=== PATIENT | female | born 1960 | race Caucasian/White ===

== ENCOUNTER → 2020-06-14 | Outpatient (CLI) | payer OTHER ==
[~2020-06-14] MED LIST: ALL DAY ALLERGY10 MG PO; ASPIR 8181 MG PO; CELEXA40 MG PO; CENTRUM SILVER1 EAC1 PO; COZAAR50 MG PO; DITROPAN XL10 MG PO; ERYTHROMYCIN OP1 GM OP; ESTRADIOL1 EAC1 TD; LEVAQUIN500 MG PO; LOPRESSOR 25 MG25 MG PO; MEDROL DOSEPAK 24 MG PO; OMEPRAZOLE20 MG PO; PRAVASTATIN SOD40 MG PO; PREDNISONE20 MG PO; PROVENTIL HFA6.7 GM INH; ROBITUSSIN AC480 ML PO; SINGULAIR10 MG PO; SYNTHROID125 MCG PO; VALACYCLOVIR1000 MG PO; VICTOZA 3-0.6 MG/0.1 SQ; VITAMIN D35000 UNI1 PO
== END ==
LOC: SLEEP 11:22
DX: G47.30 Sleep apnea, unspecified (principal); R09.81 Nasal congestion; E66.9 Obesity, unspecified
CPT/HCPCS: 95810

== ENCOUNTER 2020-07-13 13:45 | Emergency (ER) | payer OTHER ==
[~2020-07-13 13:45] MED LIST changes: -ERYTHROMYCIN OP1 GM OP; -PREDNISONE20 MG PO; -VALACYCLOVIR1000 MG PO
[2020-07-13 14:37] LABS: HEMOGLOBIN 12.2 gm/dl (12.3-15.3); RED BLOOD COUNT 4.09 M/UL (4.00-5.10); WHITE BLOOD COUNT 9.5 K/UL (4.5-11.0)
[2020-07-13 15:03] LABS: BUN/CREATININE RATIO 16 (0-10)
[2020-07-13] MEDS ORDERED: PREDNISONE20 MG PO (15:35)
[2020-07-13] MEDS ORDERED: VALACYCLOVIR1000 MG PO (15:35)
[2020-07-13] MEDS ORDERED: ERYTHROMYCIN OP1 GM OP (15:35)
== END 2020-07-13 15:44 | disposition home or self-care (01) ==
LOC: ER1 13:45
PROVIDERS: Family Medicine
DX: G51.0 Bell's palsy (principal); H92.02 Otalgia, left ear; I10 Essential (primary) hypertension; E78.5 Hyperlipidemia, unspecified; E11.9 Type 2 diabetes mellitus without complications; Z90.49 Acquired absence of other specified parts of digestive tract; Z90.710 Acquired absence of both cervix and uterus
CPT/HCPCS: 36415; 70450; 80053; 82550; 82553; 83735; 83874; 84439; 84443; 84484; 85025; 93005; 99285

== ENCOUNTER → 2021-03-18 | Outpatient (CLI) | payer OTHER ==
[~2021-03-18] MED LIST changes: +ERYTHROMYCIN OP1 GM OP; +PREDNISONE20 MG PO; +VALACYCLOVIR1000 MG PO
== END ==
LOC: MAMO 08:10
DX: Z12.31 Encounter for screening mammogram for malignant neoplasm of breast (principal)
CPT/HCPCS: 77063; 77067

== ENCOUNTER 2021-04-15 21:19 | Observation (INO) | payer OTHER ==
[~2021-04-15] VITALS: Ht 167.6 cm; Wt 127.2 kg
[2021-04-15 22:17] LABS: HEMOGLOBIN 11.6 gm/dl (12.3-15.3); RED BLOOD COUNT 3.94 M/UL (4.00-5.10); WHITE BLOOD COUNT 13.9 K/UL (4.5-11.0)
[2021-04-15 22:40] LABS: BUN/CREATININE RATIO 17 (0-10)
[2021-04-16] MEDS ORDERED: DOTTI1 EAC4 TD (02:12)
[2021-04-16] MEDS ORDERED: METOPROLOL SUCC50 MG PO (02:13)
[2021-04-16] MEDS ORDERED: LOSARTAN POTAS100 MG PO (02:13)
[2021-04-16] MEDS ORDERED: ASPIRIN EC81 MG PO (02:13)
[2021-04-16] MEDS ORDERED: ELIQUIS5 MG PO (02:17)
[2021-04-16] MEDS ORDERED: TRAMADOL HCL50 MG PO (02:17)
[2021-04-16] MEDS ORDERED: DILTIAZEM 24HR180 M1 PO (02:19)
[2021-04-16] MEDS ORDERED: VICTOZA 1818 MG/3 ML SC (02:21)
--- NOTE | 2021-04-16 04:16 | NUR ---
NOTIFIED DR MALIK OF PTS BNP RESULTS AND HER ON FLUIDS AT 42ML/HR AND MILD SWELLING TO HER FEET. ALSO NOTIFIED HIM THAT PATIENT STATES SHE IS ALLERGIC TO DIGOXIN IT MAKES HER HANDS SWELL AND RED.
[2021-04-16] MEDS ORDERED: AMIODARONE HCL200 MG PO ×2 (17:15→17:19)
[2021-04-16] MEDS ORDERED: AMIODARONE HCL400 MG PO ×2 (17:15→17:19)
[2021-04-16] MEDS ORDERED: MUCINEX600 MG PO (17:38)
[2021-04-16] MEDS ORDERED: OMNICEF 300 MG300 MG PO (17:38)
== END 2021-04-16 18:22 | disposition home or self-care (01) ==
LOC: ER1 21:19 → PROG CARE 23:12 → CDU 23:12 → PROG CARE 23:12
PROVIDERS: Physician Assistant; ADMIT Internal Medicine
DX: I48.91 Unspecified atrial fibrillation (principal); E11.9 Type 2 diabetes mellitus without complications; I10 Essential (primary) hypertension; E78.5 Hyperlipidemia, unspecified; E66.01 Morbid (severe) obesity due to excess calories; F32.A Depression, unspecified; K21.9 Gastro-esophageal reflux disease without esophagitis; E03.9 Hypothyroidism, unspecified; J30.2 Other seasonal allergic rhinitis; Z86.16 Personal history of COVID-19; Z79.01 Long term (current) use of anticoagulants; Z79.82 Long term (current) use of aspirin; Z96.652 Presence of left artificial knee joint; Z20.822 Contact with and (suspected) exposure to COVID-19
CPT/HCPCS: 36415; 71045; 80053; 81001; 82550; 82553; 82962; 83874; 83880; 84439; 84443; 84484; 85025; 85610; 85730; 93005; 96374; 96375; 96376; 99285; G0378; J2250; J3010; U0002

== ENCOUNTER → 2021-09-07 | Outpatient (CLI) | payer OTHER ==
[~2021-09-07] MED LIST changes: +AMIODARONE HCL200 MG PO; +AMIODARONE HCL400 MG PO; +ASPIRIN EC81 MG PO; +DILTIAZEM 24HR180 M1 PO; +DOTTI1 EAC4 TD; +ELIQUIS5 MG PO; +LOSARTAN POTAS100 MG PO; +METOPROLOL SUCC50 MG PO; +MUCINEX600 MG PO; +OMNICEF 300 MG300 MG PO; +TRAMADOL HCL50 MG PO; +VICTOZA 1818 MG/3 ML SC
== END ==
LOC: EXRD 11:31
DX: M47.22 Other spondylosis with radiculopathy, cervical region (principal); M47.26 Other spondylosis with radiculopathy, lumbar region
CPT/HCPCS: 72040; 72100

== ENCOUNTER 2021-12-02 18:23 | Emergency (ER) | payer OTHER ==
[2021-12-02 19:21] LABS: HEMOGLOBIN 10.9 gm/dl (12.3-15.3); RED BLOOD COUNT 3.87 M/UL (4.00-5.10); WHITE BLOOD COUNT 12.2 K/UL (4.5-11.0)
[2021-12-02 19:41] LABS: BUN/CREATININE RATIO 13 (0-10)
== END 2021-12-02 21:50 | disposition home or self-care (01) ==
LOC: ER1 18:23
PROVIDERS: Physician Assistant
DX: U07.1 COVID-19 (principal); D64.9 Anemia, unspecified; I11.9 Hypertensive heart disease without heart failure; I48.91 Unspecified atrial fibrillation; Z90.89 Acquired absence of other organs; Z90.49 Acquired absence of other specified parts of digestive tract; Z88.5 Allergy status to narcotic agent; Z88.1 Allergy status to other antibiotic agents
CPT/HCPCS: 0240U; 71045; 80053; 81001; 85025; 96374; 96375; 99284; J1885; J2405; M0222

== ENCOUNTER → 2021-12-28 | Outpatient (CLI) | payer OTHER ==
[~2021-12-28] MED LIST changes: +ARTHRITIS PAIN150 GM TP; +CYCLOBENZAPRINE10 MG PO; +DILTIAZEM 24HR120 M1 PO; +DOCUSATE SODIU100 MG PO; +DULOXETINE HCL30 MG PO; +FLONASE 0.05% N16 GM; +FUROSEMIDE40 MG PO; +LEVOCETIRIZINE D5 MG PO; +MIRTAZAPINE30 MG PO; +NITROGLYCERIN0.4 MG SL; +PATIENT'S OWN MEDICA PO; +PATIENT'S OWN MEDICA TOP; +estradiol TD
== END ==
LOC: EXRD 10:34
DX: R06.09 Other forms of dyspnea (principal); M89.319 Hypertrophy of bone, unspecified shoulder
CPT/HCPCS: 71046; 73000

== ENCOUNTER 2021-12-29 21:12 | Emergency (ER) | payer OTHER ==
[2021-12-29 21:59] LABS: HEMOGLOBIN 11.6 gm/dl (12.3-15.3); RED BLOOD COUNT 4.12 M/UL (4.00-5.10); WHITE BLOOD COUNT 11.3 K/UL (4.5-11.0)
[2021-12-29 22:43] LABS: BUN/CREATININE RATIO 14 (0-10)
== END 2021-12-30 02:56 | disposition home or self-care (01) ==
LOC: ER1 21:12
PROVIDERS: Physician Assistant
DX: R06.02 Shortness of breath (principal); R00.2 Palpitations; E78.5 Hyperlipidemia, unspecified; I48.91 Unspecified atrial fibrillation; E11.9 Type 2 diabetes mellitus without complications; I10 Essential (primary) hypertension
CPT/HCPCS: 71045; 80053; 82550; 82553; 84439; 84443; 84484; 85025; 93005; 99285

== ENCOUNTER → 2022-01-27 | Outpatient (CLI) | payer OTHER | LOC: HEART 5 12:55 | DX: I11.9 Hypertensive heart disease without heart failure (principal); I48.91 Unspecified atrial fibrillation; I07.1 Rheumatic tricuspid insufficiency | CPT/HCPCS: 93306 ==